=== PATIENT | female | born 1995 | race Caucasian/White ===

== ENCOUNTER 2018-01-25 07:16 | Emergency (ER) | payer OTHER ==
[2018-01-25] MEDS ORDERED: Penicillin VK TAB* 250 MG PO ONE (08:09)
[2018-01-25] MEDS ORDERED: Ibuprofen TAB* 600 MG PO ONE (08:09)
[2018-01-25] MEDS ORDERED: Lidocaine 2% VISCOUS* 15 ML UDC PO ONE (08:09)
[2018-01-25] MEDS ORDERED: predniSONE TAB* 20 MG PO ONE (08:12)
[2018-01-25 09:19] LABS: Hematocrit 41 % (35-47); Hemoglobin 13.7 g/dl (12.0-16.0); Mean Corpuscular HGB Conc 34 g/dl (31-36); Mean Corpuscular Hemoglobin 29 pg (27-31); Mean Corpuscular Volume 87 fL (80-97); Mean Platelet Volume 9 um3 (7.4-10.4); Platelet Count 249 10^3/ul (150-450); Red Blood Count 4.69 10^6/ul (4.0-5.4); Red Cell Distribution Width 12 % (10.5-15); White Blood Count 15.1 10^3/ul (3.5-10.8)
[2018-01-25 11:37] VITALS: BP 95/50
--- NOTE | 2018-01-26 14:32 | ED ---
Cesar Argueta Angela scribed for Carlos Michael MD on 01/25/18 at 0805 . Influenza-Like Illness - HPI Summary HPI Summary: This pt is a 22 y/o female presenting to [facility] c/o severe throat pain since last night. Pt reports her symptoms began with congestion and cough x4 days. She additionally notes rhinorrhea, body aches, and chills. Pt feels her tonsil is touching her uvula and her tonsil has been discolored. She was unable to sleep last night due to painful throat. Pt states she has also been spitting up blood. She has taken Zzzquil and Nyquil with mild relief. PMHx: strep throat multiple times, IBS. Pt notes her menstrual cycles are on time. Pt is a current smoker. - History of Current Complaint Chief Complaint: EDThroatPain Time Seen by Provider: 01/25/18 07:57 Hx Obtained From: Patient Onset/Duration: Lasting Days, Still Present Severity: Severe Associated Signs & Symptoms: Myalgia, Cough, Sore Throat, Nasal Congestion - Allergy/Home Medications Allergies/Adverse Reactions: Allergies Allergy/AdvReac Type Severity Reaction Status Date / Time No Known Allergies Allergy Verified 01/27/15 18:46 Home Medications: Home Medications Amphetamine MIXED SALT TAB* [Adderall TAB*] 10 mg PO DAILY 01/25/18 [History Confirmed 01/25/18] PMH/Surg Hx/FS Hx/Imm Hx Endocrine/Hematology History: Denies: Hx Diabetes Cardiovascular History: Denies: Hx Hypertension GI History: Reports: Hx Irritable Bowel Infectious Disease History: Unable to Obtain/Confirm Infectious Disease History: Denies: Traveled Outside the [place] in Last 30 Days - Family History Known Family History: Positive: None - Social History Alcohol Use: Occasionally Alcohol Amount: SOCIAL Substance Use Type: Reports: Marijuana, Other Substance Use Comment - Amount & Last Used: "marijuana and other stuff" Smoking Status (MU): Light Every Day Tobacco Smoker Review of Systems Positive: Chills. Negative: Fever Negative: Erythema ENT: Other - congestion Positive: Sore Throat, Nasal Discharge Negative: Chest Pain Positive: Cough. Negative: Shortness Of Breath Negative: Abdominal Pain, Vomiting, Nausea Negative: dysuria, hematuria Positive: Myalgia. Negative: Edema Negative: Rash Neurological: Other - NEG: dizziness or lightheadedness All Other Systems Reviewed And Are Negative: Yes Physical Exam - Summary Physical Exam Summary: Constitutional: Well-developed, Well-nourished, Alert. (-) Distressed Skin: Warm, Dry HENT: Normocephalic; Atraumatic. Exudative left tonsil. No uvula shift. No peritonsillar abscess. No trismus. Eyes: Conjunctiva normal Neck: Musculoskeletal ROM normal neck. (-) JVD, (-) Stridor, (-) Tracheal deviation Cardio: Rhythm regular, rate normal, Heart sounds normal; Intact distal pulses; The pedal pulses are 2+ and symmetric. Radial pulses are 2+ and symmetric. (-) Murmur Pulmonary/Chest wall: Effort normal. (-) Respiratory distress, (-) Wheezes, (-) Rales Abd: Soft, (-) Tenderness, (-) Distension, (-) Guarding, (-) Rebound Musculoskeletal: (-) Edema Lymph: (-) Cervical adenopathy Neuro: Alert, Oriented x3 Psych: Mood and affect Normal Triage Information Reviewed: Yes Vital Signs On Initial Exam: Initial Vitals Temp Pulse Resp BP Pulse Ox 98.8 F 88 16 112/70 100 01/25/18 07:28 01/25/18 07:28 01/25/18 07:28 01/25/18 07:28 01/25/18 07:28 Vital Signs Reviewed: Yes Diagnostics - Vital Signs Vital Signs Temp Pulse Resp BP Pulse Ox 01/25/18 07:28 98.8 F 88 16 112/70 100 - Laboratory Result Diagrams: 01/25/18 08:30 Lab Statement: Any lab studies that have been ordered have been reviewed, and results considered in the medical decision making process. Re-Evaluation - Re-Evaluation First Eval Re-Evaluation Time: 11:35 Change: Improved Comment: Pt reports she is feeling better. Flu Symptom Course/Dx - Course Course Of Treatment: In the ED course the pt was given ibuprofen, penicillin, prednisone. Labs were obtained. Rapid strep test is negative. Monoscreen is negative. Influenza A and B is negative. I discussed the formation of peritonsillar abscess with the pt and her mother. Pt was treated empirically while in the ED. She was discharged home with naproxen, penicillin, and prednisone. Pt is advised to follow up with her PCP in 2 days. - Diagnoses Provider Diagnoses: Tonsillitis Discharge - Discharge Plan Condition: Stable Disposition: HOME Prescriptions: Lidocaine 2% VISCOUS* [Xylocaine 2% Viscous*] 15 ml SWISH SPIT Q6H PRN #1 btl PRN Reason: Sore Throat Naproxen TAB* [Naprosyn 250 mg TAB*] 500 mg PO Q8H PRN #20 tab PRN Reason: Pain - Moderate To Severe Penicillin VK TAB* [Penicillin VK 250 mg Tab*] 500 mg PO QID #28 Penicillin VK TAB* [Penicillin VK 250 mg Tab*] 500 mg PO QID #28 tab predniSONE TAB* [Deltasone TAB*] 50 mg PO DAILY #4 tab predniSONE TAB* [Deltasone TAB*] 50 mg PO DAILY #4 tab Patient Education Materials: Tonsillitis (ED) Referrals: [facility] - Darin GOTTLIEB [Primary Care Provider] - 2 Days () Additional Instructions: Follow up with your primary care provider in 2 days. RETURN TO THE EMERGENCY DEPARTMENT FOR CHANGING OR WORSENING SYMPTOMS. The documentation as recorded by the Cesar penaloza Angela accurately reflects the service I personally performed and the decisions made by Fernanda puri Jerry, MD.
== END 2018-01-25 11:37 | disposition home or self-care (01) ==
LOC: ED 07:16
DX: J03.90 Acute tonsillitis, unspecified (principal); R05 Cough; J02.9 Acute pharyngitis, unspecified; R09.81 Nasal congestion; F17.210 Nicotine dependence, cigarettes, uncomplicated
CPT/HCPCS: 36415; 85027; 86308; 87070; 87077; 87502; 87651; 99283; A9270-GY; J7512